=== PATIENT | male | born 1985 | race Caucasian/White ===

== ENCOUNTER 2024-05-30 16:46 | Emergency (ER) | payer OTHER ==
[~2024-05-30] VITALS: Ht 172.7 cm; Wt 86.6 kg
[2024-05-30 17:06] VITALS: BP 166/102; PULSE 107; RESP 17; TEMP 97.8; O2SAT 99
[2024-05-30 18:31] LABS: BASOPHILS % (AUTO) 0.4 % (0.0-2.0); EOSINOPHILS # (AUTO) 0.1 K/uL (0-0.4); EOSINOPHILS % (AUTO) 1.9 % (0.0-4.0); HEMATOCRIT 38.2 % (36-52); HEMOGLOBIN 12.6 g/dL (12.0-18.0); LYMPHOCYTES # (AUTO) 1.3 K/uL (2.0-11.5); LYMPHOCYTES % (AUTO) 17.2 % (20.5-51.1); MEAN CORPUSCULAR HEMOGLOBIN 28 pg (27-31); MEAN CORPUSCULAR HGB CONC 33 g/dL (33-37); MEAN CORPUSCULAR VOLUME 85.8 fL (80-94); MONOCYTES # (AUTO) 0.9 K/uL (0.8-1.0); MONOCYTES % (AUTO) 11.4 % (1.7-9.3); NEUTROPHILS # (AUTO) 5.2 K/uL (1.8-7.7); NEUTROPHILS % (AUTO) 69.1 % (42.2-75.2); PLATELET COUNT (AUTO) 198 K/uL (140-450); RED BLOOD CELL COUNT(AUTO) 4.45 MIL/uL (4.20-6.10); RED CELL DISTRIBUTION WIDTH 12.9 % (11.6-13.7); WHITE BLOOD COUNT (AUTO) 7.6 K/uL (4.8-10.8)
[2024-05-30 18:40] LABS: ANION GAP 8.7 (8-16); CALCIUM 9.2 mg/dL (8.5-10.1); CARBON DIOXIDE 31.9 mmol/L (21-32); POTASSIUM 3.6 mmol/L (3.5-5.1)
[2024-05-30 19:20] LABS: BILIRUBIN,DIRECT 0.1 mg/dL (0.0-0.3); TOTAL BILIRUBIN 0.3 mg/dL (0.0-1.0); TOTAL PROTEIN, SERUM 8.2 g/dL (6.4-8.2)
[2024-05-30 19:30] VITALS: O2SAT 99
[2024-05-30] MEDS: ACETAMINOPHEN EXTRA STRENGTH 500 MG TAB PO ONE (20:11)
[2024-05-30 22:58] LABS: APPEARANCE,URINE CLEAR (CLEAR); BILIRUBIN,URINE NEGATIVE (NEGATIVE); BLOOD, URINE NEGATIVE (NEGATIVE); COLOR,URINE YELLOW (YELLOW); LEUKOCYTE ESTERASE ,URINE NEGATIVE (NEGATIVE); NITRITE, URINE NEGATIVE (NEGATIVE); PROTEIN,URINE NEGATIVE (NEGATIVE); UGLUCOSE NEGATIVE (NEGATIVE); UROBILINOGEN,URINE 0.2 EU/dL (0.2 - 1)
== END 2024-05-30 23:38 | disposition home or self-care (01) ==
LOC: MED 16:46
DX: R60.0 Localized edema (principal); N23 Unspecified renal colic; R14.0 Abdominal distension (gaseous); I10 Essential (primary) hypertension
CPT/HCPCS: 36415; 80048; 80076; 81003; 83690; 83880; 84484; 85025; 93005; 93971; 99284